=== PATIENT | male | born 1965 | race African-American/Black ===

== ENCOUNTER 2022-10-30 20:11 | Inpatient (IN) | payer OTHER ==
[2022-10-30 20:54] VITALS: BMI 26.6
[2022-10-30] MEDS ORDERED: IBUPROFEN 600 MG TABLET (FP) PO PRN (21:45)
[2022-10-30] MEDS ORDERED: IBUPROFEN 400 MG TABLET (FP) PO PRN (21:45)
[2022-10-30] MEDS ORDERED: MAG HYDROX/AL HYDROX/SIMETH 30 ML UNIT-DOSE CUP PO PRN (21:45)
[2022-10-30] MEDS ORDERED: ACETAMINOPHEN 325 MG TABLET (FP) PO PRN ×2 (21:45)
[2022-10-30] MEDS ORDERED: ONDANSETRON *ODT* 4 MG TABLET SL PRN (21:45)
[2022-10-30] MEDS ORDERED: POLYETHYLENE GLYCOL (HEALTHYLAX) 3350 17 GM PACKET PO PRN (21:45)
[2022-10-30] MEDS ORDERED: MAGNESIUM HYDROX 2400MG/30ML ORAL SUSPENSION 30 ML CUP PO PRN (21:45)
[2022-10-30] MEDS ORDERED: BISMUTH SUBSALICYLATE 524 MG/30 ML PO PRN (21:45)
[2022-10-30] MEDS ORDERED: guaiFENesin 200 MG/10 ML 10 ML UNIT-DOSE CUPS PO PRN (21:45)
[2022-10-30] MEDS ORDERED: LOPERAMIDE HCL 2 MG CAPSULE PO PRN (21:45)
[2022-10-30] MEDS ORDERED: DICYCLOMINE HCL 10 MG CAPSULE PO PRN (21:45)
[2022-10-30] MEDS ORDERED: BENZOCAINE/MENTHOL (CHLORASEPTIC ) LOZENGE MM PRN (21:45)
[2022-10-30] MEDS ORDERED: NALOXONE HCL 0.4 MG/ML VIAL IM PRN (21:45)
[2022-10-30] MEDS ORDERED: NICOTINE POLACRILEX 2 MG GUM BUC PRN (21:45)
[2022-10-30] MEDS ORDERED: METHOCARBAMOL 500 MG TABLET PO PRN (21:45)
[2022-10-30] MEDS ORDERED: NALOXONE HCL (KLOXXADO) 8 MG SPRAY NS PRN (21:45)
[2022-10-30] MEDS ORDERED: P-EPHED 60MG/TRIPROLIDI 2.5MG TABLET PO PRN (21:45)
[2022-10-31] MEDS: MELATONIN 5 MG TABLETS PO SCH ×2 (00:42→22:28)
[2022-10-31] MEDS: THIAMINE HCL 100 MG TABLET (FP) PO SCH ×2 (00:42→22:27)
[2022-10-31] MEDS ORDERED: BUPRENORPHINE HCL 150 MCG, BUPRENORPHINE HCL 75 MCG BC ONE (10:02)
[2022-10-31] MEDS ORDERED: diazePAM 5 MG TABLET PO PRN (10:02)
[2022-10-31] MEDS ORDERED: BUPRENORPHINE HCL 150 MCG, BUPRENORPHINE HCL 75 MCG BC PRN (10:02)
[2022-10-31] MEDS ORDERED: cloNIDine HCL 0.1 MG TABLET PO ONE (10:02)
[2022-10-31] MEDS: NICOTINE 21 MG/24 HOURS TOPICAL PATCH TD SCH (10:28)
[2022-10-31] MEDS: PRENATAL VITAMINS W/ FOLIC ACID TABLET (FP) PO SCH (10:31)
[2022-10-31] MEDS: ALBUTEROL SO4 HFA INHALER IH PRN (10:32)
[2022-10-31 11:30] LABS: HEMATOCRIT 38.8 % (35.4-49); HEMOGLOBIN 12.9 GM/dL (11.7-16.9); MCH 29.5 pg (25.7-33.7); MCHC 33.2 g/dl (32.0-35.9); MEAN CELL VOLUME 88.9 fl (80-96); PLATELET COUNT 208 10^3/uL (134-434); RBC 4.36 M/mm3 (4.00-5.60); RDW 14.4 % (11.9-15.9); WHITE BLOOD COUNT 6.6 K/mm3 (4.0-10.0)
[2022-10-31 12:08] LABS: ALBUMIN 3.2 g/dl (3.4-5.0); BILIRUBIN,TOTAL 0.6 mg/dL (0.2-1); BLOOD UREA NITROGEN 18.7 mg/dL (7-18); CALCIUM 9.1 mg/dL (8.5-10.1); CREATININE 1.2 mg/dL (0.55-1.3)
[2022-10-31] MEDS: cloNIDine HCL 0.1 MG TABLET PO PRN (22:29)
[2022-11-01] MEDS ORDERED: BUPRENORPHINE HCL 150 MCG, BUPRENORPHINE HCL 75 MCG BC PRN
[2022-11-01] MEDS: BUPRENORPHINE HCL 150 MCG, BUPRENORPHINE HCL 75 MCG BC SCH ×2 (05:25→17:37)
[2022-11-01] MEDS: NICOTINE 21 MG/24 HOURS TOPICAL PATCH TD SCH (10:37)
[2022-11-01] MEDS: ALBUTEROL SO4 HFA INHALER IH PRN (10:37)
[2022-11-01] MEDS: PRENATAL VITAMINS W/ FOLIC ACID TABLET (FP) PO SCH (10:37)
[2022-11-01] MEDS: THIAMINE HCL 100 MG TABLET (FP) PO SCH (22:56)
[2022-11-01] MEDS: MELATONIN 5 MG TABLETS PO SCH (22:56)
[2022-11-01] MEDS: hydrOXYzine PAMOATE 25 MG CAPSULE (FP) PO PRN (22:56)
[2022-11-01 23:14] LABS: URINE APPEARANCE CLEAR; URINE BILIRUBIN NEGATIVE (NEGATIVE); URINE COLOR YELLOW; URINE GLUCOSE (UA) NEGATIVE (NEGATIVE); URINE KETONE NEGATIVE (NEGATIVE); URINE LEUK ESTERASE NEGATIVE (NEGATIVE); URINE NITRITE NEGATIVE (NEGATIVE); URINE PROTEIN NEGATIVE (NEGATIVE); URINE UROBILINOGEN 0.2 mg/dL (0.2-1.0)
[2022-11-02] MEDS ORDERED: BUPRENORPHINE HCL 450 MCG FILM BC SCH (06:00)
[2022-11-02] MEDS: NICOTINE 21 MG/24 HOURS TOPICAL PATCH TD SCH (10:41)
[2022-11-02] MEDS: PRENATAL VITAMINS W/ FOLIC ACID TABLET (FP) PO SCH (10:41)
[2022-11-02] MEDS ORDERED: methaDONE HCL 10 MG TABLET (FOR DETOX USE ONLY) PO ONE ×2 (12:00→21:55)
[2022-11-02] MEDS: MELATONIN 5 MG TABLETS PO SCH (22:24)
[2022-11-02] MEDS: THIAMINE HCL 100 MG TABLET (FP) PO SCH (22:25)
[2022-11-02] MEDS: cloNIDine HCL 0.1 MG TABLET PO PRN (22:25)
[2022-11-02] MEDS: hydrOXYzine PAMOATE 25 MG CAPSULE (FP) PO PRN (22:25)
[2022-11-02] MEDS ORDERED: methaDONE HCL 10 MG TABLET PO ONE (23:00)
[2022-11-03] MEDS ORDERED: methaDONE HCL 10 MG TABLET PO SCH (06:00)
[2022-11-03] MEDS ORDERED: BUPRENORPHINE/NALOXONE 4 MG/1 MG FILM PACKET SL SCH (06:00)
[2022-11-03] MEDS ORDERED: methaDONE HCL 10 MG TABLET (FOR DETOX USE ONLY) PO SCH (06:00)
[2022-11-03 09:18] VITALS: BP 122/89; PULSE 61; RESP 18; TEMP 98.8
[2022-11-04] MEDS ORDERED: BUPRENORPHINE/NALOXONE 8 MG/2 MG FILM PACKET SL ONE (06:00)
[2022-11-04] MEDS ORDERED: methaDONE HCL 10 MG TABLET PO SCH (06:00)
[2022-11-04] MEDS ORDERED: methaDONE HCL 10 MG TABLET (FOR DETOX USE ONLY) PO ONE (10:00)
[2022-11-06] MEDS ORDERED: methaDONE HCL 10 MG TABLET (FOR DETOX USE ONLY) PO ONE (10:00)
== END 2022-11-03 09:35 | disposition left against medical advice (07) | DRG 770 ==
LOC: YASAS 20:11 → Y6N 23:52
PROVIDERS: ADMIT Allergy & Immunology; ATTEND Surgery
PROC: HZ2ZZZZ Detoxification Services for Substance Abuse Treatment (ICD-10-PCS; principal; 2022-10-30)
DX: F11.23 Opioid dependence with withdrawal (principal); F10.20 Alcohol dependence, uncomplicated; F17.210 Nicotine dependence, cigarettes, uncomplicated; J45.20 Mild intermittent asthma, uncomplicated; M17.11 Unilateral primary osteoarthritis, right knee; Z91.14 Patient's other noncompliance with medication regimen
CPT/HCPCS: 36415; 80053; 81003; 85027; 86780; 87811; 93005; 93010; C9803-CS; Q0162; U0003; U0005